=== PATIENT | female | born 1950 | race Caucasian/White ===

== ENCOUNTER 2022-08-15 21:03 | Inpatient (IN) ==
[2022-08-15] MEDS ORDERED: ACETAMINOPHEN 500 MG TABLET PO STA (21:26)
[2022-08-15] MEDS ORDERED: SODIUM CHLORIDE 0.9% 500 ML IV STA (21:26)
[2022-08-15 22:48] LABS: Basophils % 0.3 % (0.0-0.8); Hematocrit 44.3 VOL% (35.7-47.0); Immature Granulocytes % 1.9 %; Immature Granulocytes Absolute 0.07 #; Lymphocytes # 0.4 10*3/uL (1.4-4.0); Lymphocytes % 10.5 % (21.3-54.2); Mean Corpuscular HGB Conc 31.6 GM/DL (32-36); Mean Corpuscular Volume 89.1 FL (87-102); Mean Platelet Volume 10.8 FL (9.6-12.0); Monocytes % 0.8 % (1.7-12.7); NRBC # 0.02 10*3/uL; Neutrophils % 86.5 % (38.7-73.9); Platelet Count 82 T/CUMM (130-400); Red Blood Count 4.97 MC/CUMM (3.8-5.5); Red Cell Distribution Width 14.9 % (9.3-17.3); White Blood Count 3.7 T/CUMM (4-12)
[2022-08-15 22:49] LABS: RBC,Urine 44886 /HPF (0-4)
[2022-08-15 22:50] LABS: Bilirubin,Urine Small mg/dL (Negative); Blood, Urine Large mg/dL (Negative); Glucose,Urine (UA) Negative (Negative); Ketones,Urine Trace mg/dL (Negative); Nitrite,Urine Positive (Negative); Protein,Urine >=300 mg/dL (Negative); Urine Appearance CLOUDY (Clear); Urine Color Red (Yellow)
[2022-08-15] MEDS ORDERED: cefTRIAXone 1,000 MG in SODIUM CHLORIDE 0.9% 100 ML IV STA (23:00)
[2022-08-15 23:15] LABS: Alanine Aminotransferase 16 U/L (13-56); Albumin 2.4 G/DL (3.4-5.0); Alkaline Phosphatase 276 U/L (45-117); Amylase 32 U/L (25-115); Aspartate Amino Transferase 34 U/L (0-37); Blood Urea Nitrogen 20 MG/DL (7-18); Calcium 8.3 MG/DL (8.5-10.1); Carbon Dioxide 25 MMOL/L (21-32); Chloride 107 MMOL/L (98-107); Glucose 79 MG/DL (74-106); Osmolality,Calculated 282.3 MOS/KG (273-304); Potassium 3.8 MMOL/L (3.5-5.1); Sodium 141 MMOL/L (136-145); Total Protein 5.2 G/DL (6.4-8.2)
[2022-08-15] MEDS ORDERED: SODIUM CHLORIDE 0.9% 2,400 ML IV ONE (23:22)
[2022-08-15 23:33] LABS: Band Neutrophils 3 % (0-10); Lymphocytes 7 % (20-55); Platelet Estimate Decreased; Total Cells Counted 100
[2022-08-15] MEDS ORDERED: ONDANSETRON 4 MG/2 ML VIAL IV PRN (23:38)
[2022-08-15] MEDS ORDERED: ALUMINUM/MAGNES/SIMETH MAX STR 30 ML UDCUP PO PRN (23:38)
[2022-08-16] MEDS: PIPERACILLIN/TAZOBACTAM 3,375 MG in SODIUM CHLORIDE 0.9% 100 ML IV SCH ×3 (02:08→16:11)
[2022-08-16] MEDS: LACTATED RINGERS 1,000 ML IV SCH ×4 (02:16→22:46)
[2022-08-16 04:19] LABS: Basophils % 0.2 % (0.0-0.8); Hematocrit 37.9 VOL% (35.7-47.0); Hemoglobin 11.7 GM/DL (12.0-16.0); Immature Granulocytes % 2.1 %; Immature Granulocytes Absolute 0.27 #; Lymphocytes # 0.4 10*3/uL (1.4-4.0); Lymphocytes % 3.1 % (21.3-54.2); Mean Corpuscular HGB Conc 30.9 GM/DL (32-36); Mean Corpuscular Volume 92.9 FL (87-102); Mean Platelet Volume 11.8 FL (9.6-12.0); Monocytes # 0.6 10*3/uL (0.11-0.8); Monocytes % 4.4 % (1.7-12.7); Neutrophils % 90.2 % (38.7-73.9); Platelet Count 63 T/CUMM (130-400); Red Blood Count 4.08 MC/CUMM (3.8-5.5); White Blood Count 12.6 T/CUMM (4-12)
[2022-08-16 04:41] LABS: Band Neutrophils 3 % (0-10); Lymphocytes 3 % (20-55); Metamyelocytes 1 %; Microcytosis 1+; Total Cells Counted 100
[2022-08-16 04:42] LABS: Ovalocytes Slight; Platelet Estimate Decreased
[2022-08-16 04:43] LABS: Hypochromia Slight
[2022-08-16 04:55] LABS: Calcium 7.1 MG/DL (8.5-10.1); Potassium 3.1 MMOL/L (3.5-5.1)
[2022-08-16] MEDS ORDERED: MAGNESIUM SULF RIDER 4 GM/100 ML PREMIX IV PRN (05:33)
[2022-08-16] MEDS ORDERED: MAGNESIUM SULF RIDER 2 GM/50 ML PREMIX IV PRN (05:33)
[2022-08-16] MEDS ORDERED: POTASSIUM CHLORIDE RIDER 10 MEQ/100 ML PREMIX IV PRN (05:35)
[2022-08-16] MEDS: POTASSIUM CHLORIDE 20 MEQ TABLET PO PRN ×4 (05:46→16:11)
[2022-08-16] MEDS: CLOPIDOGREL 75 MG TABLET PO SCH (08:42)
[2022-08-16] MEDS: PANTOPRAZOLE 40 MG TABLET PO SCH (08:43)
[2022-08-16] MEDS: DOCUSATE SODIUM 100 MG CAPSULE PO SCH ×2 (08:43→22:32)
[2022-08-16] MEDS ORDERED: ALBUTEROL/IPRATROPIUM 3 ML NEB RESP TX PRN (10:43)
[2022-08-16] MEDS: NICOTINE 21 MG/24 HR PATCH TRANSDERM SCH (12:16)
[2022-08-16] MEDS: ACETAMINOPHEN 325 MG TABLET PO PRN ×2 (13:35→20:58)
[2022-08-16] MEDS ORDERED: LOPERAMIDE 2 MG CAPSULE PO ONE (17:49)
[2022-08-16] MEDS: oxyCODONE/ACETAMINOPHEN 5-325 MG TABLET PO PRN (17:52)
[2022-08-16] MEDS: TAMSULOSIN 0.4 MG CAPSULE PO SCH (20:58)
[2022-08-16] MEDS: ZALEPLON 5 MG CAPSULE PO PRN (20:58)
[2022-08-17 01:01] LABS: Basophils % 0.1 % (0.0-0.8); Eosinophils % 0.1 % (0.00-10.9); Hematocrit 34.9 VOL% (35.7-47.0); Immature Granulocytes % 1.6 %; Immature Granulocytes Absolute 0.27 #; Lymphocytes # 1.1 10*3/uL (1.4-4.0); Lymphocytes % 6.4 % (21.3-54.2); Mean Corpuscular HGB Conc 31.5 GM/DL (32-36); Mean Corpuscular Volume 88.8 FL (87-102); Mean Platelet Volume 11.5 FL (9.6-12.0); Monocytes # 0.8 10*3/uL (0.11-0.8); Monocytes % 4.9 % (1.7-12.7); Neutrophils % 86.9 % (38.7-73.9); Platelet Count 69 T/CUMM (130-400); Red Blood Count 3.93 MC/CUMM (3.8-5.5); Red Cell Distribution Width 15.4 % (9.3-17.3); White Blood Count 16.7 T/CUMM (4-12)
[2022-08-17 01:10] LABS: Calcium 7.8 MG/DL (8.5-10.1)
[2022-08-17 01:26] LABS: Band Neutrophils 1 % (0-10); Lymphocytes 6 % (20-55); Platelet Estimate Decreased; Total Cells Counted 100
[2022-08-17] MEDS: PIPERACILLIN/TAZOBACTAM 3,375 MG in SODIUM CHLORIDE 0.9% 100 ML IV SCH (01:26)
[2022-08-17] MEDS: oxyCODONE/ACETAMINOPHEN 5-325 MG TABLET PO PRN ×4 (01:27→22:39)
[2022-08-17] MEDS: MEROPENEM 500 MG in SODIUM CHLORIDE 0.9% 100 ML IV SCH ×2 (10:06→18:40)
[2022-08-17] MEDS: NICOTINE 21 MG/24 HR PATCH TRANSDERM SCH (10:06)
[2022-08-17] MEDS: DOCUSATE SODIUM 100 MG CAPSULE PO SCH (10:07)
[2022-08-17] MEDS: PANTOPRAZOLE 40 MG TABLET PO SCH (10:07)
[2022-08-17] MEDS: BUDESONIDE/FORMOTEROL 160-4.5 INHALER 6 GM INH SCH ×2 (16:09→21:29)
[2022-08-17] MEDS: LOPERAMIDE 2 MG CAPSULE PO PRN (16:10)
[2022-08-17] MEDS: LACTATED RINGERS 1,000 ML IV SCH (18:41)
[2022-08-17] MEDS: ZALEPLON 5 MG CAPSULE PO PRN (21:24)
[2022-08-17] MEDS: TAMSULOSIN 0.4 MG CAPSULE PO SCH (21:25)
[2022-08-18] MEDS: MEROPENEM 500 MG in SODIUM CHLORIDE 0.9% 100 ML IV SCH ×3 (01:52→16:29)
[2022-08-18 05:10] LABS: Basophils % 0.2 % (0.0-0.8); Eosinophils # 0.2 10*3/uL (0.0-0.87); Eosinophils % 1.3 % (0.00-10.9); Hematocrit 34.3 VOL% (35.7-47.0); Hemoglobin 10.9 GM/DL (12.0-16.0); Immature Granulocytes % 0.8 %; Lymphocytes # 1.3 10*3/uL (1.4-4.0); Lymphocytes % 10.5 % (21.3-54.2); Mean Corpuscular HGB Conc 31.8 GM/DL (32-36); Mean Corpuscular Volume 88.9 FL (87-102); Mean Platelet Volume 10.8 FL (9.6-12.0); Monocytes # 0.7 10*3/uL (0.11-0.8); Neutrophils % 81.2 % (38.7-73.9); Platelet Count 66 T/CUMM (130-400); Red Blood Count 3.86 MC/CUMM (3.8-5.5); Red Cell Distribution Width 15.5 % (9.3-17.3); White Blood Count 11.9 T/CUMM (4-12)
[2022-08-18] MEDS: LACTATED RINGERS 1,000 ML IV SCH (05:10)
[2022-08-18 05:30] LABS: Platelet Estimate Decreased
[2022-08-18 05:41] LABS: Alanine Aminotransferase 13 U/L (13-56); Albumin 1.8 G/DL (3.4-5.0); Alkaline Phosphatase 75 U/L (45-117); Aspartate Amino Transferase 20 U/L (0-37); Bilirubin,Total < 0.39 MG/DL (0.20-1.00); Blood Urea Nitrogen 21 MG/DL (7-18); Calcium 8.1 MG/DL (8.5-10.1); Carbon Dioxide 25 MMOL/L (21-32); Chloride 114 MMOL/L (98-107); Glucose 75 MG/DL (74-106); Osmolality,Calculated 289.7 MOS/KG (273-304); Potassium 3.9 MMOL/L (3.5-5.1); Sodium 145 MMOL/L (136-145); Total Protein 4.6 G/DL (6.4-8.2)
[2022-08-18] MEDS: oxyCODONE/ACETAMINOPHEN 5-325 MG TABLET PO PRN ×3 (06:45→21:02)
[2022-08-18 07:58] LABS: INR 0.9; PT Patient Result 10.3 SECS (10.1-12.1)
[2022-08-18] MEDS: BUDESONIDE/FORMOTEROL 160-4.5 INHALER 6 GM INH SCH ×2 (09:49→21:01)
[2022-08-18] MEDS: PANTOPRAZOLE 40 MG TABLET PO SCH (09:50)
[2022-08-18] MEDS: NICOTINE 21 MG/24 HR PATCH TRANSDERM SCH (09:50)
[2022-08-18] MEDS: TAMSULOSIN 0.4 MG CAPSULE PO SCH (21:01)
[2022-08-18] MEDS: ZALEPLON 5 MG CAPSULE PO PRN (21:01)
[2022-08-18] MEDS: PREGABALIN 75 MG CAPSULE PO SCH (21:02)
[2022-08-19] MEDS: MEROPENEM 500 MG in SODIUM CHLORIDE 0.9% 100 ML IV SCH (00:06)
[2022-08-19 05:06] LABS: Basophils % 0.3 % (0.0-0.8); Eosinophils # 0.2 10*3/uL (0.0-0.87); Hematocrit 35.1 VOL% (35.7-47.0); Hemoglobin 11.2 GM/DL (12.0-16.0); Immature Granulocytes % 0.7 %; Immature Granulocytes Absolute 0.05 #; Lymphocytes # 1.4 10*3/uL (1.4-4.0); Lymphocytes % 18.2 % (21.3-54.2); Mean Corpuscular HGB Conc 31.9 GM/DL (32-36); Mean Corpuscular Volume 89.5 FL (87-102); Monocytes # 0.8 10*3/uL (0.11-0.8); Monocytes % 10.9 % (1.7-12.7); Neutrophils % 66.9 % (38.7-73.9); Platelet Count 74 T/CUMM (130-400); Red Blood Count 3.92 MC/CUMM (3.8-5.5); Red Cell Distribution Width 15.5 % (9.3-17.3); White Blood Count 7.6 T/CUMM (4-12)
[2022-08-19 05:45] LABS: Calcium 7.9 MG/DL (8.5-10.1); Osmolality,Calculated 286.8 MOS/KG (273-304); Potassium 3.5 MMOL/L (3.5-5.1)
[2022-08-19 05:58] LABS: Anisocytosis Slight; Band Neutrophils 2 % (0-10); Eosinophils 6 % (0-10); Lymphocytes 16 % (20-55); Platelet Estimate Decreased; Total Cells Counted 100
[2022-08-19] MEDS ORDERED: DIAZEPAM 5 MG TABLET PO ONE (06:53)
[2022-08-19] MEDS ORDERED: fentaNYL 100 MCG/2 ML VIAL IV ONE (07:12)
[2022-08-19] MEDS ORDERED: MIDAZOLAM 2 MG/2 ML VIAL IV ONE (07:12)
[2022-08-19] MEDS: SODIUM CHLORIDE 0.45% 1,000 ML IV SCH (08:10)
[2022-08-19] MEDS: FLUoxetine 20 MG CAPSULE PO SCH (09:55)
[2022-08-19] MEDS: lisinopriL 10 MG TABLET PO SCH (09:55)
[2022-08-19] MEDS: ROSUVASTATIN 20 MG TABLET PO SCH (09:55)
[2022-08-19] MEDS: PANTOPRAZOLE 40 MG TABLET PO SCH (09:55)
[2022-08-19] MEDS: PREGABALIN 75 MG CAPSULE PO SCH ×2 (09:55→21:29)
[2022-08-19] MEDS: EZETIMIBE 10 MG TABLET PO SCH (09:55)
[2022-08-19] MEDS: NICOTINE 21 MG/24 HR PATCH TRANSDERM SCH (09:56)
[2022-08-19] MEDS: BUDESONIDE/FORMOTEROL 160-4.5 INHALER 6 GM INH SCH ×2 (09:59→21:27)
[2022-08-19] MEDS: cefTRIAXone 1,000 MG in SODIUM CHLORIDE 0.9% 100 ML IV SCH (10:04)
[2022-08-19] MEDS: ACETAMINOPHEN 325 MG TABLET PO PRN ×2 (14:02→21:28)
[2022-08-19] MEDS: oxyCODONE/ACETAMINOPHEN 5-325 MG TABLET PO PRN (17:21)
[2022-08-19] MEDS: TAMSULOSIN 0.4 MG CAPSULE PO SCH (21:28)
[2022-08-19] MEDS: ZALEPLON 5 MG CAPSULE PO PRN (21:28)
[2022-08-19] MEDS: POTASSIUM CHLORIDE 20 MEQ TABLET PO PRN (21:29)
[2022-08-20] MEDS: POTASSIUM CHLORIDE 20 MEQ TABLET PO PRN (02:19)
[2022-08-20] MEDS: oxyCODONE/ACETAMINOPHEN 5-325 MG TABLET PO PRN ×4 (02:19→23:03)
[2022-08-20 05:42] LABS: Basophils % 0.3 % (0.0-0.8); Eosinophils # 0.3 10*3/uL (0.0-0.87); Hematocrit 35.2 VOL% (35.7-47.0); Hemoglobin 11.2 GM/DL (12.0-16.0); Immature Granulocytes % 0.9 %; Immature Granulocytes Absolute 0.06 #; Lymphocytes # 1.2 10*3/uL (1.4-4.0); Lymphocytes % 18.5 % (21.3-54.2); Mean Corpuscular HGB Conc 31.8 GM/DL (32-36); Mean Corpuscular Volume 89.3 FL (87-102); Mean Platelet Volume 12.6 FL (9.6-12.0); Monocytes # 0.8 10*3/uL (0.11-0.8); Monocytes % 12.6 % (1.7-12.7); Neutrophils % 63.7 % (38.7-73.9); Platelet Count 78 T/CUMM (130-400); Red Blood Count 3.94 MC/CUMM (3.8-5.5); Red Cell Distribution Width 15.5 % (9.3-17.3); White Blood Count 6.7 T/CUMM (4-12)
[2022-08-20 06:18] LABS: Calcium 7.9 MG/DL (8.5-10.1); Osmolality,Calculated 286.7 MOS/KG (273-304); Potassium 4.1 MMOL/L (3.5-5.1)
[2022-08-20] MEDS: SODIUM CHLORIDE 0.45% 1,000 ML IV SCH (07:16)
[2022-08-20] MEDS: cefTRIAXone 1,000 MG in SODIUM CHLORIDE 0.9% 100 ML IV SCH (08:33)
[2022-08-20] MEDS: PANTOPRAZOLE 40 MG TABLET PO SCH (08:36)
[2022-08-20] MEDS: FLUoxetine 20 MG CAPSULE PO SCH (08:36)
[2022-08-20] MEDS: hydroCHLOROthiazide 25 MG TABLET PO SCH (08:36)
[2022-08-20] MEDS: PREGABALIN 75 MG CAPSULE PO SCH ×2 (08:36→20:18)
[2022-08-20] MEDS: ROSUVASTATIN 20 MG TABLET PO SCH (08:36)
[2022-08-20] MEDS: lisinopriL 10 MG TABLET PO SCH (08:36)
[2022-08-20] MEDS: EZETIMIBE 10 MG TABLET PO SCH (08:36)
[2022-08-20] MEDS: BISOPROLOL 5 MG TABLET PO SCH (08:36)
[2022-08-20] MEDS: NICOTINE 21 MG/24 HR PATCH TRANSDERM SCH (08:39)
[2022-08-20] MEDS: BUDESONIDE/FORMOTEROL 160-4.5 INHALER 6 GM INH SCH ×2 (08:39→20:18)
[2022-08-20] MEDS ORDERED: BISOPROLOL/HCTZ 10-6.25 MG TABLET PO SCH (09:00)
[2022-08-20] MEDS: LOPERAMIDE 2 MG CAPSULE PO PRN (10:20)
[2022-08-20] MEDS: ZALEPLON 5 MG CAPSULE PO PRN (20:18)
[2022-08-20] MEDS: TAMSULOSIN 0.4 MG CAPSULE PO SCH (20:18)
[2022-08-21] MEDS: cefTRIAXone 1,000 MG in SODIUM CHLORIDE 0.9% 100 ML IV SCH (08:59)
[2022-08-21] MEDS: lisinopriL 10 MG TABLET PO SCH (09:06)
[2022-08-21] MEDS: ROSUVASTATIN 20 MG TABLET PO SCH (09:06)
[2022-08-21] MEDS: FLUoxetine 20 MG CAPSULE PO SCH (09:06)
[2022-08-21] MEDS: PANTOPRAZOLE 40 MG TABLET PO SCH (09:06)
[2022-08-21] MEDS: BISOPROLOL 5 MG TABLET PO SCH (09:06)
[2022-08-21] MEDS: CLOPIDOGREL 75 MG TABLET PO SCH (09:06)
[2022-08-21] MEDS: BUDESONIDE/FORMOTEROL 160-4.5 INHALER 6 GM INH SCH (09:07)
[2022-08-21] MEDS: hydroCHLOROthiazide 25 MG TABLET PO SCH (09:07)
[2022-08-21] MEDS: EZETIMIBE 10 MG TABLET PO SCH (09:07)
[2022-08-21] MEDS: PREGABALIN 75 MG CAPSULE PO SCH (09:07)
[2022-08-21] MEDS: NICOTINE 21 MG/24 HR PATCH TRANSDERM SCH (09:08)
[2022-08-21] MEDS: LOPERAMIDE 2 MG CAPSULE PO PRN (10:04)
[2022-08-21] MEDS: oxyCODONE/ACETAMINOPHEN 5-325 MG TABLET PO PRN (10:05)
[2022-08-21 12:53] VITALS: BP 152/73
== END 2022-08-21 13:47 | disposition home health service (06) | DRG 871 ==
LOC: EDBD → EDUNIT# → N.ED 21:03 → N.2E 23:38
PROVIDERS: ADMIT Internal Medicine; ATTEND Internal Medicine